=== PATIENT | female | born 1975 | race Caucasian/White ===

== ENCOUNTER 2023-04-14 17:56 | Emergency (ER) | payer MEDICAID, OTHER ==
[~2023-04-14] VITALS: Ht 165.1 cm; Wt 70.3 kg
--- NOTE | 2023-04-14 18:59 | NUR ---
Xray at bedside.
[2023-04-14] MEDS ORDERED: OXYCODONE/APAP 5-325 MG TABLET PO ONE (19:00)
[2023-04-14] MEDS ORDERED: BACITRACIN ZINC OINT 15 GM TUBE TOP ONE (19:00)
[2023-04-14] MEDS ORDERED: LIDOCAINE VISCUS 2% 15 ML UDC MM ONE (19:00)
--- NOTE | 2023-04-14 19:05 | NUR ---
Per Dr. Seaman, given verbal order to administer 10ml of Lidocaine 4% topically to right knee.
[2023-04-14] MEDS ORDERED: OXYCODONE/APAP 5-325 MG TABLET ONE (19:10)
[2023-04-14] MEDS ORDERED: LIDOCAINE 4% TOPICAL 50 ML BOTTLE ONE (19:10)
[2023-04-14] MEDS ORDERED: BACITRACIN ZINC OINT 15 GM TUBE ONE (19:12)
[2023-04-14] MEDS ORDERED: HYDR-3980 PO (19:17)
[2023-04-14] MEDS ORDERED: LIDOCAINE 4% TOPICAL 50 ML BOTTLE TP ONE (19:30)
--- NOTE | 2023-04-14 19:30 | NUR ---
Mariaelena placed in left shoulder sling per Dr. Seaman's order.
--- NOTE | 2023-04-14 19:49 | NUR ---
Patient discharged to home in stable condition. Written and verbal after care instructions given. Patient verbalizes understanding of instructions. Stressed follow up or return to ER for worsening s/s. Patient given printed medication prescription. Instructed patient not to drive.
--- NOTE | 2023-04-14 19:51 | NUR ---
Percocet 5-325mg PO ressessment due at 20:12 marked as not done due to patient discharged home. Patient stated 2/10 rating pain to right knee prior to discharge. Patient in stable condition, no signs of acute distress noted.
[2023-04-14 19:53] VITALS: BP 120/65; TEMP 98.4; O2SAT 98
== END 2023-04-14 19:53 | disposition home or self-care (01) ==
LOC: ER 17:56
DX: S52.122A Displaced fracture of head of left radius, initial encounter for closed fracture (principal); S80.212A Abrasion, left knee, initial encounter; S80.211A Abrasion, right knee, initial encounter; Z79.899 Other long term (current) drug therapy; W18.39XA Other fall on same level, initial encounter; Y93.89 Activity, other specified; Y92.89 Other specified places as the place of occurrence of the external cause; Y99.8 Other external cause status
CPT/HCPCS: 73080; A4663